=== PATIENT | female | born 1980 | race Two or more races ===

== ENCOUNTER → 2018-07-07 | Outpatient (CLI) | payer OTHER ==
--- NOTE | 2018-07-07 13:38 | RADIOLOGY IMAGING REPORT ---
FACILITY: [facility] [place] PATIENT NAME: Maris Shore : 1980 MR: [id number] V: [id number] EXAM DATE: ORDERING PHYSICIAN: CARLA SILVEIRA TECHNOLOGIST: Location: [facility] Patient: Maris Shore : 1980 Visit/Account:[id number] Date of Sevice: 07/07/2018 Exam type: US VENOUS LOWER EXT LT History: Left leg pain, elevated d-dimer Comparison: None. Findings: The left common femoral vein, proximal most portion left superficial femoral vein, left profunda femo ral vein ,distal superficial femoral vein, popliteal vein, posterior tibial and peroneal veins and an terior tibial veins were noncompressible containing intraluminal thrombus. The distal left iliac vei n also appear to contain thrombus. The IVC appeared to be patent. IMPRESSION: 1. There is extensive DVT of the left lower extremity veins as detailed above Results were called to CARLA SILVEIRA at 07/07/2018 11:18 AM by the technologist Report Dictated By: Luda Barr MD at 07/07/2018 1:27 PM Report E-Signed By: Luda Barr MD at 07/07/2018 1:34 PM WSN:[email or web address]
== END ==
LOC: US 09:56
PROVIDERS: ATTEND Family Medicine
DX: I82.412 Acute embolism and thrombosis of left femoral vein (principal); I82.432 Acute embolism and thrombosis of left popliteal vein; I82.442 Acute embolism and thrombosis of left tibial vein; I82.422 Acute embolism and thrombosis of left iliac vein